=== PATIENT | female | born 1940 | race Caucasian/White ===

== ENCOUNTER → 2017-04-02 | Outpatient (CLI) | payer MEDICARE | END | disposition home or self-care (01) | LOC: CFH 09:47 | PROVIDERS: ATTEND Licensed Practical Nurse | DX: Z13.820 Encounter for screening for osteoporosis (principal); N95.8 Other specified menopausal and perimenopausal disorders; M81.0 Age-related osteoporosis without current pathological fracture | CPT/HCPCS: 77080 ==

== ENCOUNTER 2017-07-31 09:34 | Emergency (ER) | payer MEDICARE ==
[~2017-07-31] VITALS: Ht 162.6 cm; Wt 76.4 kg
[2017-07-31] MEDS ORDERED: SODIUM CHLORIDE FLUSH 10ML SYR IVF ONE (15:00)
[2017-07-31 15:10] LABS: BASOPHILS # (AUTO) 0.09 x10^3/uL (0-0.1); BASOPHILS % (AUTO) 1 % (0-1); EOSINOPHILS # (AUTO) 0.19 x10^3/uL (0-0.4); EOSINOPHILS % (AUTO) 3 % (1-7); LYMPHOCYTES # (AUTO) 1.72 x10^3/uL (1-3.4); LYMPHOCYTES % (AUTO) 25 % (22-44); MD NO; MEAN CORPUSCULAR HEMOGLOBIN 28.5 pg (27.0-34.8); MEAN CORPUSCULAR HGB CONC 33.2 g/dL (32.4-35.8); MEAN CORPUSCULAR VOLUME 85.9 fL (80-100); MEAN PLATELET VOLUME 9.4 fL (7.4-10.4); MONOCYTES # (AUTO) 0.65 x10^3/uL (0.2-0.8); MONOCYTES % (AUTO) 9 % (2-9); NEUTROPHILS # (AUTO) 4.24 x10^3/uL (1.8-6.8); NEUTROPHILS % (AUTO) 62 % (42-75); PLATELET COUNT 261 x10^3/uL (130-400); RED BLOOD COUNT 5.38 x10^6/uL (3.82-5.3); RED CELL DISTRIBUTION WIDTH 14.9 % (9.6-15.2)
[2017-07-31 15:20] LABS: ALBUMIN 3.6 g/dL (3.4-5.0); ANION GAP 10 mmol/L (5-15); CALCIUM 9.2 mg/dL (8.5-10.1); CHLORIDE 100 mmol/L (98-107); CREATININE 0.86 mg/dL (0.55-1.02)
[2017-07-31 16:41] VITALS: BP 180/100
[2017-07-31] MEDS ORDERED: OMNIPAQUE 350 MG/ML, 100ML BOTTLE ONE (16:45)
[2017-07-31] MEDS ORDERED: AMLO10TA4 PO (17:07)
[2017-07-31] MEDS ORDERED: METF500T4 PO (17:07)
== END 2017-07-31 17:53 | disposition home or self-care (01) ==
LOC: ED 10:57
DX: G45.9 Transient cerebral ischemic attack, unspecified (principal); I10 Essential (primary) hypertension; I71.4 Abdominal aortic aneurysm, without rupture
CPT/HCPCS: 36415; 71275; 80048; 82040; 85025; 93005; 93306; 93880; 99285; Q9967

== ENCOUNTER 2018-10-16 21:43 | Inpatient (IN) | payer MEDICARE ==
[~2018-10-16] VITALS: Ht 162.6 cm; Wt 72.0 kg
[~2018-10-16 21:43] MED LIST: AMLO10TA4 PO; METF500T17 PO
--- NOTE | 2018-10-16 21:55 | NUR ---
Patient transferred from [facility] for abdominal pain and vomiting, patient states she is nauseous upon arrival but no active vomiting. Patient is alert, answering questions appropriately at this time. Waiting for to arrive with patient's medication list. Continuous blood pressure, SPO2 and cardiac monitoring in place, call aviles within reach.
--- NOTE | 2018-10-16 22:41 | NUR ---
Patient resting in gurney with at bedside in no acute distress at this time. Call aviles within reach, waiting for records from [facility].
--- NOTE | 2018-10-16 22:49 | NUR ---
Dr. Turner at bedside evaluating patient.
[2018-10-16] MEDS ORDERED: METRONIDAZOLE PMX 500MG/100ML 100 ML IV ONE (23:00)
[2018-10-16] MEDS ORDERED: SODIUM CHLORIDE 0.9% 1,000ML IVBOLUS ONE (23:00)
--- NOTE | 2018-10-16 23:13 | NUR ---
report received from BAILEY De León. neither pt or her were able to verify home meds for med rec. RN unable to complete at this time.
[2018-10-16] MEDS ORDERED: METRONIDAZOLE PMX 500MG/100ML 100 ML ONE (23:17)
--- NOTE | 2018-10-16 23:53 | NUR ---
report given to BAILEY Rojas at bedside. urine straight cath obtained and walked to lab. pt a&ox4, resps even and unlabored, denies pain at this time.
[2018-10-17 00:14] LABS: CULTURE INDICATED? YES
[2018-10-17 00:15] LABS: MICROSCOPIC INDICATED
--- NOTE | 2018-10-17 02:31 | NUR ---
report to [facility]err[facility] for room 472
[2018-10-17 03:00] VITALS: BP 142/106
[2018-10-17] MEDS ORDERED: ACETAMINOPHEN 325 MG TABLET PO PRN (04:00)
[2018-10-17] MEDS ORDERED: LABETALOL 5 MG/ML SYRINGE IVPush PRN (04:00)
[2018-10-17] MEDS ORDERED: morphine SULFATE 10 MG/ML, 1ML IVPush PRN (04:00)
[2018-10-17] MEDS ORDERED: ONDANSETRON ODT 4 MG PO PRN (04:00)
[2018-10-17] MEDS ORDERED: ASPI-496 PO (04:13)
[2018-10-17] MEDS ORDERED: GABA300C10 PO (04:13)
[2018-10-17] MEDS ORDERED: CITA10TA4 PO (04:13)
[2018-10-17] MEDS ORDERED: LISI-420 PO (04:13)
[2018-10-17] MEDS ORDERED: METO100T7 PO (04:13)
[2018-10-17] MEDS ORDERED: METO50TA6 PO (04:13)
[2018-10-17] MEDS ORDERED: CLOP75TA52 PO (04:13)
[2018-10-17] MEDS ORDERED: LOVA20TA2 PO (04:16)
[2018-10-17 04:26] LABS: ANION GAP 13 mmol/L (5-15); CHLORIDE 102 mmol/L (98-107); CHOLESTEROL, TOTAL 106 mg/dL (140-239); TRIGLYCERIDES 162 mg/dL (50-200); VLDL CHOLESTEROL 32 mg/dL (0-25)
[2018-10-17 04:28] LABS: CHOL/HDL RATIO 2.7; HDL CHOL % 37 % (28-40); HDL CHOLESTEROL (DIRECT) 39 mg/dL (40-60); LDL CHOLESTEROL,CALCULATED 35 mg/dL (54-169); LDL/HDL RATIO 0.9 (0.5-3.0)
[2018-10-17 04:29] LABS: BASOPHILS # (AUTO) 0.01 x10^3/uL (0-0.1); BASOPHILS % (AUTO) 0 % (0-1); EOSINOPHILS % (AUTO) 0 % (1-7); LYMPHOCYTES # (AUTO) 1.38 x10^3/uL (1-3.4); LYMPHOCYTES % (AUTO) 13 % (22-44); MD NO; MEAN CORPUSCULAR HEMOGLOBIN 29.7 pg (27.0-34.8); MEAN CORPUSCULAR HGB CONC 34.2 g/dL (32.4-35.8); MEAN PLATELET VOLUME 10.2 fL (7.4-10.4); MONOCYTES # (AUTO) 0.92 x10^3/uL (0.2-0.8); MONOCYTES % (AUTO) 9 % (2-9); NEUTROPHILS # (AUTO) 8.44 x10^3/uL (1.8-6.8); NEUTROPHILS % (AUTO) 79 % (42-75); PLATELET COUNT 233 x10^3/uL (130-400); RED BLOOD COUNT 5.27 x10^6/uL (3.82-5.3); RED CELL DISTRIBUTION WIDTH 13.9 % (9.6-15.2)
[2018-10-17 04:30] VITALS: BP 158/90
[2018-10-17] MEDS: LACTATED RINGERS 1,000 ML IV SCH ×2 (04:31→17:20)
[2018-10-17 07:11] VITALS: BP 131/95
[2018-10-17] MEDS: AMLODIPINE 10 MG TAB PO SCH (08:15)
[2018-10-17] MEDS: LISINOPRIL 20 MG TABLET PO SCH (08:15)
[2018-10-17] MEDS: CLOPIDOGREL 75 MG TABLET PO SCH (08:16)
[2018-10-17] MEDS: ASPIRIN 81 MG TABLET EC PO SCH (08:16)
[2018-10-17] MEDS: METOPROLOL SUCCINATE 100 MG TAB.ER.24H PO SCH (09:00)
[2018-10-17 13:56] VITALS: BP 130/82
[2018-10-17] MEDS: CEFTRIAXONE PMX 1GM/50ML 50 ML IV SCH (18:12)
[2018-10-17 20:27] VITALS: BP 121/81
[2018-10-17] MEDS: GABAPENTIN 400 MG CAPSULE PO SCH (22:17)
[2018-10-17] MEDS: LOVASTATIN 20 MG TABLET PO SCH (22:17)
[2018-10-17] MEDS: CITALOPRAM 10 MG TABLET PO SCH (22:17)
[2018-10-17] MEDS: METOPROLOL MC SCH (23:45)
[2018-10-18 01:50] VITALS: BP 143/88
[2018-10-18 05:47] LABS: ANION GAP 9 mmol/L (5-15); CALCIUM 8.1 mg/dL (8.5-10.1); CHLORIDE 98 mmol/L (98-107); CREATININE 1.11 mg/dL (0.55-1.02)
[2018-10-18 05:54] LABS: BASOPHILS # (AUTO) 0.03 x10^3/uL (0-0.1); BASOPHILS % (AUTO) 0 % (0-1); EOSINOPHILS # (AUTO) 0.01 x10^3/uL (0-0.4); EOSINOPHILS % (AUTO) 0 % (1-7); LYMPHOCYTES # (AUTO) 1.69 x10^3/uL (1-3.4); LYMPHOCYTES % (AUTO) 17 % (22-44); MD NO; MEAN CORPUSCULAR HEMOGLOBIN 29.9 pg (27.0-34.8); MEAN CORPUSCULAR HGB CONC 34.2 g/dL (32.4-35.8); MEAN CORPUSCULAR VOLUME 87.4 fL (80-100); MEAN PLATELET VOLUME 9.7 fL (7.4-10.4); MONOCYTES # (AUTO) 0.85 x10^3/uL (0.2-0.8); MONOCYTES % (AUTO) 8 % (2-9); NEUTROPHILS # (AUTO) 7.54 x10^3/uL (1.8-6.8); NEUTROPHILS % (AUTO) 75 % (42-75); PLATELET COUNT 178 x10^3/uL (130-400); RED BLOOD COUNT 5.17 x10^6/uL (3.82-5.3); RED CELL DISTRIBUTION WIDTH 13.5 % (9.6-15.2)
[2018-10-18] MEDS ORDERED: POTASSIUM CHLORIDE 40 MEQ in SODIUM CHLORIDE 0.9% 500 ML IV ONE (06:30)
[2018-10-18] MEDS: LACTATED RINGERS 1,000 ML IV SCH ×2 (06:34→20:00)
[2018-10-18 07:00] VITALS: BP 99/66
[2018-10-18] MEDS: METOPROLOL MC SCH (07:45)
[2018-10-18] MEDS: LISINOPRIL 20 MG TABLET PO SCH (08:29)
[2018-10-18] MEDS: AMLODIPINE 10 MG TAB PO SCH (08:29)
[2018-10-18] MEDS: ASPIRIN 81 MG TABLET EC PO SCH (08:29)
[2018-10-18] MEDS: CLOPIDOGREL 75 MG TABLET PO SCH (08:29)
[2018-10-18] MEDS: METOPROLOL SUCCINATE 100 MG TAB.ER.24H PO SCH ×2 (09:00→20:29)
[2018-10-18] MEDS ORDERED: DEXTROSE 50%, 50ML SYRINGE IVPush PRN (12:00)
[2018-10-18] MEDS ORDERED: DEXTROSE 4 GM TAB.CHEW PO PRN (12:00)
[2018-10-18] MEDS ORDERED: GLUCAGON 1 MG IM PRN (12:00)
[2018-10-18] MEDS ORDERED: POTASSIUM PHOSPHATE 44 MEQ in SODIUM CHLORIDE 0.9% 500 ML IV ONE ×2 (13:30→17:30)
[2018-10-18] MEDS: MAGNESIUM SULFATE PMX 2GM/50ML 50 ML IV SCH (14:30)
[2018-10-18 15:06] VITALS: BP 127/81
[2018-10-18] MEDS: CEFTRIAXONE PMX 1GM/50ML 50 ML IV SCH (16:46)
[2018-10-18] MEDS: INSULIN LISPRO 100 UNITS/ML, PEN SQ-INSULIN SCH ×2 (17:07→20:33)
[2018-10-18 20:11] VITALS: BP 148/85
[2018-10-18] MEDS: SODIUM CHLORIDE FLUSH 10ML SYR IVF SCH (20:29)
[2018-10-18] MEDS: CITALOPRAM 10 MG TABLET PO SCH (20:29)
[2018-10-18] MEDS: GABAPENTIN 400 MG CAPSULE PO SCH (20:29)
[2018-10-18] MEDS: LOVASTATIN 20 MG TABLET PO SCH (20:29)
[2018-10-19] MEDS: MAGNESIUM SULFATE PMX 2GM/50ML 50 ML IV SCH (00:51)
[2018-10-19 02:00] VITALS: BP 155/92
[2018-10-19 06:18] LABS: CHLORIDE 98 mmol/L (98-107)
[2018-10-19 06:25] LABS: ALANINE AMINOTRANSFERASE 21 U/L (12-78); ALBUMIN 2.9 g/dL (3.4-5.0); ALKALINE PHOSPHATASE 69 U/L (45-117); ANION GAP 9 mmol/L (5-15); BILIRUBIN,TOTAL 0.7 mg/dL (0.2-1.0); CALCIUM 7.8 mg/dL (8.5-10.1); CREATININE 0.97 mg/dL (0.55-1.02); TOTAL PROTEIN 6.2 g/dL (6.4-8.2)
[2018-10-19] MEDS: INSULIN LISPRO 100 UNITS/ML, PEN SQ-INSULIN SCH ×4 (07:13→20:57)
[2018-10-19 07:39] VITALS: BP 107/72
[2018-10-19 08:14] LABS: BASOPHILS # (AUTO) 0.04 x10^3/uL (0-0.1); BASOPHILS % (AUTO) 0 % (0-1); EOSINOPHILS # (AUTO) 0.05 x10^3/uL (0-0.4); EOSINOPHILS % (AUTO) 1 % (1-7); LYMPHOCYTES # (AUTO) 1.69 x10^3/uL (1-3.4); LYMPHOCYTES % (AUTO) 17 % (22-44); MD SCAN; MEAN CORPUSCULAR HEMOGLOBIN 29.6 pg (27.0-34.8); MEAN CORPUSCULAR HGB CONC 33.8 g/dL (32.4-35.8); MEAN CORPUSCULAR VOLUME 87.6 fL (80-100); MEAN PLATELET VOLUME 10.2 fL (7.4-10.4); MONOCYTES # (AUTO) 0.84 x10^3/uL (0.2-0.8); MONOCYTES % (AUTO) 8 % (2-9); NEUTROPHILS % (AUTO) 74 % (42-75); PLATELET COUNT 183 x10^3/uL (130-400); RED CELL DISTRIBUTION WIDTH 13.6 % (9.6-15.2)
[2018-10-19] MEDS ORDERED: POTASSIUM PHOSPHATE 44 MEQ in SODIUM CHLORIDE 0.9% 500 ML IV ONE (10:00)
[2018-10-19] MEDS: AMLODIPINE 10 MG TAB PO SCH (10:01)
[2018-10-19] MEDS: ASPIRIN 81 MG TABLET EC PO SCH (10:01)
[2018-10-19] MEDS: CLOPIDOGREL 75 MG TABLET PO SCH (10:01)
[2018-10-19] MEDS: METOPROLOL SUCCINATE 100 MG TAB.ER.24H PO SCH ×2 (10:01→20:50)
[2018-10-19] MEDS: LISINOPRIL 20 MG TABLET PO SCH (10:02)
[2018-10-19] MEDS: SODIUM CHLORIDE FLUSH 10ML SYR IVF SCH ×2 (10:29→20:51)
[2018-10-19 12:48] VITALS: BP 108/72
[2018-10-19] MEDS: AZITHROMYCIN 500 MG TABLET PO SCH (15:30)
[2018-10-19] MEDS: ONDANSETRON 2MG/ML, 2ML IVPush PRN (18:12)
[2018-10-19] MEDS: CEFTRIAXONE PMX 1GM/50ML 50 ML IV SCH (19:26)
[2018-10-19] MEDS: CITALOPRAM 10 MG TABLET PO SCH (20:49)
[2018-10-19] MEDS: LOVASTATIN 20 MG TABLET PO SCH (20:50)
[2018-10-19] MEDS: GABAPENTIN 400 MG CAPSULE PO SCH (20:50)
[2018-10-19 20:51] VITALS: BP 146/92
[2018-10-20 01:32] VITALS: BP 139/88
[2018-10-20] MEDS: ONDANSETRON 2MG/ML, 2ML IVPush PRN (04:01)
[2018-10-20 06:29] LABS: ANION GAP 6 mmol/L (5-15); CHLORIDE 97 mmol/L (98-107)
[2018-10-20 06:31] LABS: CALCIUM 7.9 mg/dL (8.5-10.1)
[2018-10-20] MEDS: INSULIN LISPRO 100 UNITS/ML, PEN SQ-INSULIN SCH ×2 (07:00→11:00)
[2018-10-20 07:43] VITALS: BP 158/97
[2018-10-20] MEDS ORDERED: POTASSIUM CHLORIDE 40 MEQ in SODIUM CHLORIDE 0.9% 500 ML IV ONE (08:00)
[2018-10-20] MEDS: ASPIRIN 81 MG TABLET EC PO SCH (08:44)
[2018-10-20] MEDS: METOPROLOL SUCCINATE 100 MG TAB.ER.24H PO SCH (08:44)
[2018-10-20] MEDS: AMLODIPINE 10 MG TAB PO SCH (08:44)
[2018-10-20] MEDS: LISINOPRIL 20 MG TABLET PO SCH (08:45)
[2018-10-20] MEDS: CLOPIDOGREL 75 MG TABLET PO SCH (08:45)
[2018-10-20] MEDS: SODIUM CHLORIDE FLUSH 10ML SYR IVF SCH (08:45)
[2018-10-20] MEDS: AZITHROMYCIN 500 MG TABLET PO SCH (09:01)
[2018-10-20 12:30] VITALS: BP 154/97
[2018-10-20] MEDS ORDERED: METO100T7 PO (13:27)
[2018-10-20] MEDS ORDERED: ONDA4TAB13 PO (13:27)
[2018-10-20] MEDS ORDERED: CEFD300C37 PO (13:27)
[2018-10-20] MEDS ORDERED: AZIT500T5 PO (13:27)
== END 2018-10-20 15:13 | disposition home or self-care (01) | DRG 682 ==
LOC: ED 10-17 00:58 → EDIP 10-17 01:50 → 4NOR 10-17 02:54
PROVIDERS: ADMIT Family Medicine; ATTEND Family Medicine
PROC: 0T9B70Z Drainage of Bladder with Drainage Device, Via Natural or Artificial Opening (ICD-10-PCS; principal; 2018-10-16)
DX: N17.9 Acute kidney failure, unspecified (principal); J96.21 Acute and chronic respiratory failure with hypoxia; J18.1 Lobar pneumonia, unspecified organism; E87.2 Acidosis; N39.0 Urinary tract infection, site not specified; J44.0 Chronic obstructive pulmonary disease with (acute) lower respiratory infection; A08.4 Viral intestinal infection, unspecified; E11.9 Type 2 diabetes mellitus without complications; E86.0 Dehydration; Z66 Do not resuscitate; E83.39 Other disorders of phosphorus metabolism; E83.42 Hypomagnesemia; E87.6 Hypokalemia; I10 Essential (primary) hypertension; I71.4 Abdominal aortic aneurysm, without rupture; M16.11 Unilateral primary osteoarthritis, right hip; Z79.84 Long term (current) use of oral hypoglycemic drugs; Z86.73 Personal history of transient ischemic attack (TIA), and cerebral infarction without residual deficits; Z86.79 Personal history of other diseases of the circulatory system; Z90.710 Acquired absence of both cervix and uterus
CPT/HCPCS: 36415; 71045; 80048; 80053; 80061; 81001; 82962; 83605; 83735; 84100; 85025; 87040; 87086; 93005; 96360; G0378; J0696; J2405; J3480; J1815; J3475; J7030; J7040; J7120

== ENCOUNTER 2019-02-18 11:48 | Outpatient (CLI) | payer MEDICARE | END 2019-02-18 23:59 | disposition home or self-care (01) | LOC: CFH 11:48 | PROVIDERS: ATTEND Internal Medicine Cardiovascular Disease | DX: I71.2 Thoracic aortic aneurysm, without rupture (principal) | CPT/HCPCS: 71275; 82565; Q9967 ==

== ENCOUNTER 2019-06-02 08:11 | Day surgery (SDC) | payer MEDICARE ==
[~2019-06-02] VITALS: Ht 160 cm; Wt 68.2 kg
[~2019-06-02 08:11] MED LIST changes: +ASPI-496 PO; +AZIT500T10 PO; +CEFD300C37 PO; +CITA10TA4 PO; +CLOP75TA52 PO; +GABA300C10 PO; +LISI-420 PO; +LOVA20TA2 PO; +METO100T7 PO; +METO50TA6 PO; +ONDA4TAB13 PO
[2019-06-02] MEDS ORDERED: LOVA40TA2 PO (09:15)
[2019-06-02] MEDS ORDERED: HYDR25TA6 PO (09:19)
[2019-06-02] MEDS ORDERED: METO200T47 PO (09:24)
[2019-06-02 09:40] VITALS: BP 158/87
[2019-06-02 09:52] LABS: BASOPHILS # (AUTO) 0.03 x10^3/uL (0-0.1); BASOPHILS % (AUTO) 1 % (0-1); EOSINOPHILS % (AUTO) 3 % (1-7); LYMPHOCYTES # (AUTO) 0.89 x10^3/uL (1-3.4); LYMPHOCYTES % (AUTO) 13 % (22-44); MD NO; MEAN CORPUSCULAR HEMOGLOBIN 29.2 pg (27.0-34.8); MEAN CORPUSCULAR HGB CONC 32.8 g/dL (32.4-35.8); MEAN PLATELET VOLUME 9.1 fL (7.4-10.4); MONOCYTES # (AUTO) 0.75 x10^3/uL (0.2-0.8); MONOCYTES % (AUTO) 11 % (2-9); NEUTROPHILS % (AUTO) 72 % (42-75); PLATELET COUNT 230 x10^3/uL (130-400); RED BLOOD COUNT 5.07 x10^6/uL (3.82-5.3); RED CELL DISTRIBUTION WIDTH 14.3 % (9.6-15.2)
[2019-06-02 09:54] LABS: CREATININE 1.16 mg/dL (0.55-1.02); INTERNATIONAL NORMALIZED RATIO 1.03 (0.93-1.1); PROTHROMBIN TIME 10.8 Seconds (9.6-11.5)
[2019-06-02] MEDS ORDERED: SODIUM CHLORIDE 0.45% 100 ML IV SCH (10:00)
[2019-06-02] MEDS ORDERED: MIDAZOLAM 1 MG/ML, 5ML ONE (10:35)
[2019-06-02] MEDS ORDERED: FENTANYL PF 100 MCG/2ML ONE (10:35)
[2019-06-02] MEDS ORDERED: HEPARIN 1,000 UNITS/ML, 10ML ONE (10:35)
[2019-06-02] MEDS ORDERED: PROTAMINE SULFATE 10 MG/ML, 25ML ONE (10:35)
[2019-06-02] MEDS ORDERED: FLUMAZENIL 0.1 MG/1 ML, 5ML ONE (10:35)
[2019-06-02] MEDS ORDERED: NITROGLYCERIN 5 MG/ML, 10ML ONE (10:35)
[2019-06-02] MEDS ORDERED: NALOXONE 1 MG/ML, 2ML ONE (10:35)
[2019-06-02] MEDS ORDERED: VISIPAQUE 270 MG/ML, 50ML BOTTLE ONE (11:00)
[2019-06-02] MEDS ORDERED: LIDOCAINE 1%, 10ML ONE (11:38)
[2019-06-02] MEDS ORDERED: hydrALAzine 20 MG/ML, 1ML ONE (11:46)
== END 2019-06-02 14:40 | disposition home or self-care (01) ==
LOC: OUT 08:11
PROVIDERS: ATTEND Surgery
DX: T82.9XXA Unspecified complication of cardiac and vascular prosthetic device, implant and graft, initial encounter (principal); I77.811 Abdominal aortic ectasia; Q25.46 Tortuous aortic arch; I10 Essential (primary) hypertension; E11.9 Type 2 diabetes mellitus without complications; Z79.84 Long term (current) use of oral hypoglycemic drugs; Z79.01 Long term (current) use of anticoagulants; Z79.899 Other long term (current) drug therapy; Z87.891 Personal history of nicotine dependence; Z88.8 Allergy status to other drugs, medicaments and biological substances; Z80.41 Family history of malignant neoplasm of ovary; Y83.8 Other surgical procedures as the cause of abnormal reaction of the patient, or of later complication, without mention of misadventure at the time of the procedure
CPT/HCPCS: 36200; 36415; 75625; 75710; 82565; 82962; 84520; 85025; 85610; 85730; 99156; C1751; C1760; C1769; C1894; G0269; J0360; J2250; J3010; Q9966; 99157; J1644; J2720; J2310

== ENCOUNTER 2020-04-11 15:00 | Emergency (ER) | payer MEDICARE ==
[~2020-04-11] VITALS: Ht 162.6 cm; Wt 73.0 kg
[~2020-04-11 15:00] MED LIST changes: +HYDR25TA6 PO; +LOVA40TA2 PO; +METO200T47 PO
--- NOTE | 2020-04-11 15:42 | NUR ---
first contact with pt. per pt's son, pt is weaker and weaker for a few months. pt had multiple falls. last glf today. denies hitting of head/loc. pt's aox4. resps even and unlabored. pt c/o left knee pain. bp/spo2 monitors in place. call light within reach. pt's son at bedside.
--- NOTE | 2020-04-11 15:51 | NUR ---
edmd at bedside at this time.
--- NOTE | 2020-04-11 16:20 | NUR ---
ekg done at bedside by ems at this time.
[2020-04-11 16:27] LABS: BASOPHILS # (AUTO) 0.02 x10^3/uL (0-0.1); BASOPHILS % (AUTO) 0 % (0-1); EOSINOPHILS # (AUTO) 0.11 x10^3/uL (0-0.4); EOSINOPHILS % (AUTO) 2 % (1-7); LYMPHOCYTES # (AUTO) 0.88 x10^3/uL (1-3.4); LYMPHOCYTES % (AUTO) 14 % (22-44); MD NO; MEAN CORPUSCULAR HEMOGLOBIN 29.3 pg (27.0-34.8); MEAN CORPUSCULAR HGB CONC 33.2 g/dL (32.4-35.8); MEAN CORPUSCULAR VOLUME 88.4 fL (80-100); MEAN PLATELET VOLUME 9.3 fL (7.4-10.4); MONOCYTES # (AUTO) 0.62 x10^3/uL (0.2-0.8); MONOCYTES % (AUTO) 10 % (2-9); NEUTROPHILS % (AUTO) 73 % (42-75); PLATELET COUNT 157 x10^3/uL (130-400); RED BLOOD COUNT 4.81 x10^6/uL (3.82-5.3); RED CELL DISTRIBUTION WIDTH 13.7 % (9.6-15.2)
[2020-04-11 16:37] LABS: ALANINE AMINOTRANSFERASE 12 U/L (12-78); ALBUMIN 3.1 g/dL (3.4-5.0); ANION GAP 7 mmol/L (5-15); CALCIUM 9.2 mg/dL (8.5-10.1); CHLORIDE 110 mmol/L (98-107)
[2020-04-11 16:39] LABS: ALKALINE PHOSPHATASE 98 U/L (45-117); BILIRUBIN,TOTAL 0.6 mg/dL (0.2-1.0); TOTAL PROTEIN 7.1 g/dL (6.4-8.2)
--- NOTE | 2020-04-11 16:44 | NUR ---
pt attempted to provide urine sample but no success. pt's straight cath'd using sterile technique. urine collected. this rn walked to lab for ua.
[2020-04-11 17:24] LABS: MICROSCOPIC INDICATED
--- NOTE | 2020-04-11 17:42 | NUR ---
pt in ct at this time.
[2020-04-11 18:02] VITALS: BP 210/123
--- NOTE | 2020-04-11 18:02 | NUR ---
pt back to room from ct. pt sleeping in [facility]. resps even and unlabored. bp/spo2 monitors in place. call light within reach.
--- NOTE | 2020-04-11 18:19 | NUR ---
edmd at bedside to explain all results at this time.
--- NOTE | 2020-04-11 18:55 | NUR ---
Patient given discharge instructions and they have confirmed that they understand the instructions.
== END 2020-04-11 18:56 | disposition home or self-care (01) ==
LOC: ED 18:23
DX: N30.01 Acute cystitis with hematuria (principal); I10 Essential (primary) hypertension; R53.1 Weakness; M25.562 Pain in left knee; R51 Headache; R94.31 Abnormal electrocardiogram [ECG] [EKG]; E11.9 Type 2 diabetes mellitus without complications; Z87.891 Personal history of nicotine dependence; Z86.73 Personal history of transient ischemic attack (TIA), and cerebral infarction without residual deficits
CPT/HCPCS: 36415; 70450; 80053; 81001; 85025; 87077; 87086; 87186; 93005; 99285